=== PATIENT | male | born 1980 | race Caucasian/White ===

== ENCOUNTER 2016-12-04 09:54 | Day surgery (SDC) | payer OTHER ==
[~2016-12-04 09:54] MED LIST: Lactated Ringers 1,000 ML IV SCH; Lidocaine 1%/Sod Bicarbonate in NS 8.4% 1 ML Syringe IV PRN; Sodium Chloride 0.9% 10 ML Syringe FLUSH PRN
--- NOTE | 2016-12-04 11:06 | PCM.PREANE ---
Preanesthetic Assessment - Physical Assessment O2 Sat by Pulse Oximetry: 96 Respiratory Rate: 16 Vital Signs: Last Vital Signs Temp 98.7 C H 12/04/16 10:35 Pulse 79 12/04/16 10:35 Resp 16 12/04/16 10:35 BP 137/79 12/04/16 10:35 Pulse Ox 96 12/04/16 10:35 Height: 1.8 m Weight: 79.379 kg - Allergies Allergies/Adverse Reactions: Allergies Allergy/AdvReac Type Severity Reaction Status Date / Time No Known Allergies Allergy Verified 12/03/16 13:58 PreAnesthesia Questionnaire HEENT History: Reports: Otitis media, Sinusitis, Other (see below) Other HEENT History: dental abcess, jaw pain Cardiovascular History: Reports: None Respiratory History: Reports: Other (see below) Other Respiratory History: SOB on exertion Gastrointestinal History: Reports: Chronic diarrhea, Other (see below) Other Gastrointestinal History: epigastric pain, Hep C exposure Genitourinary History: Reports: None HISTORIC SITE ADMINISTRATOR History: Reports: None Musculoskeletal History: Reports: Other (see below) Other Musculoskeletal History: lumbar strain Neurological History: Reports: Vertigo, Other (see below) Psychiatric History: Reports: None Endocrine/Metabolic History: Reports: None Hematologic History: Reports: None Immunologic History: Reports: None Oncologic (Cancer) History: Reports: None Dermatologic History: Reports: Other (see below) Other Dermatologic History: open wound to face - Past Surgical History Head Surgeries/Procedures: Reports: None - SUBSTANCE USE Smoking Status *Q: Current Every Day Smoker (1-2ppd for 15 years) Recreational Drug Use History: Yes Recreational Drug Type: Reports: Methamphetamine - HOME MEDS Home Medications: Home Meds Chlorhexidine Gluconate [Periogard] 1 dose PO ASDIRECTED 12/03/16 [History] Ibuprofen [Ibuprofen] 800 mg PO TID PRN 12/03/16 [History] Omeprazole [Omeprazole] 40 mg PO DAILY 12/03/16 [History] - CURRENT (IN HOUSE) MEDS Current Meds: Current Medications Lactated Ringer's (Ringers, Lactated) 1,000 mls @ 125 mls/hr IV ASDIRECTED KAYLA Stop: 12/04/16 23:00 Lidocaine/Sodium Bicarbonate (Buffered Lidocaine 1% In Ns 8.4%) 0.25 ml IV ONETIME PRN PRN Reason: Prior to IV Start Stop: 12/04/16 18:00 Sodium Chloride (Saline Flush) 10 ml FLUSH ASDIRECTED PRN PRN Reason: Keep Vein Open Stop: 12/04/16 18:00 Preanesthetic Assessment - ANESTHESIA/TRANSFUSION/FAMILY HX Anesthesia/Transfusion History: No Prior Anesthesia, No Prior Transfusion(s) Family History of Anesthesia Reaction: No Intubation History: Unknown Type of Transfusion Reactions: Reports: Unknown - REVIEW OF SYSTEMS Constitutional: Reports: no symptoms ADMINISTRATIVE SUPPORT ASSOC: Reports: no symptoms Respiratory: Reports: shortness of breath (with exertion "probably due to smoking") Cardiovascular: Reports: no symptoms GI: Reports: no symptoms Other: Reports: None - PHYSICAL ASSESSMENT O2 Sat by Pulse Oximetry: 96 RR: 16 Vital Signs: Last Vital Signs Temp 98.7 C H 12/04/16 10:35 Pulse 79 12/04/16 10:35 Resp 16 12/04/16 10:35 BP 137/79 12/04/16 10:35 Pulse Ox 96 12/04/16 10:35 Height: 1.8 m Weight: 79.379 kg NPO Status Date: 12/03/16 NPO Status Time: 22:00 ASA Class: 2 Mental Status: Alert & Oriented x3 Dentition: Reports: Broken Tooth/Teeth, Missing Tooth/Teeth (multiple missing top teeth, multiple missing. Very poor dentition. ) Thyro-Mental Finger Breadths: 3 Mouth Opening Finger Breadths: 3 ROM/Head Extension: Full Respiratory Status: lungs clear to auscultation bilaterally Cardiovascular Status: regular rate & rhythm, normal S1, S2, no murmur, blood pressure WNL - ALLERGIES Allergies/Adverse Reactions: Allergies Allergy/AdvReac Type Severity Reaction Status Date / Time No Known Allergies Allergy Verified 12/03/16 13:58 - BLOOD Blood Available: No Product(s) Available: None - ANESTHESIA PLAN Preop Beta Eleonora: No Anesthesia Type Planned: MAC - ACKNOWLEDGEMENTS Pt an Appropriate Candidate for the Planned Anesthesia: Yes Alternatives and Risks of Anesthesia Discussed w Pt/Guardian: Yes Pt/Guardian Understands and Agrees with Anesthesia Plan: Yes
[2016-12-04] MEDS ORDERED: Propofol 200 MG/20 ML SDV ONE (11:28)
[2016-12-04] MEDS ORDERED: Midazolam 1 MG/ML 2 ML SDV ONE (11:28)
--- NOTE | 2016-12-04 11:40 | PCM.OPNOTE ---
[id number] junction, body of the stomach, and antral bx Findings: normal Pre Op Diagnosis: Dyspepsia severe Post-Op Diagnosis: normal EGD Anesthesia Technique: MAC, Moderate sedation Primary Surgeon: Ayad Dickerson Pathology: bx of antrum, stomach, and GE junction EBL in mLs: 0 Complications: None Condition: Good Free Text/Narrative:: After adequate IV sedation and analgesia was obtained. The patient was placed on his left side through a bite block. A lubricated upper endoscope was inserted into the esophagus and advanced to the stomach without difficulty. Air was given here, followed by inch, into the duodenum. The second, and first part of the duodenum were endoscopically normal with no mass, lesions or inflammatory changes seen. The body of the stomach, and antral unremarkable as well. In the retroflexed view the fundus and cardiac, regions were normal. There was no hiatal hernia. The scope was withdrawn to the GE junction, which was normal. Because of his history I took random biopsies of the antrum, body of the stomach, and GE junction using cold forceps x2 each. The body of the esophagus was endoscopically normal. Supervisor [employer] photographs were taken for the patient and for the record. Air was removed, as I finished the procedure, which he tolerated well.
--- NOTE | 2016-12-04 11:54 | PCM48HPAN ---
Post Anesthesia Note - EVALUATION WITHIN 48HRS OF ANESTHETIC Vital Signs in Normal Range: Yes Patient Participated in Evaluation: Yes Respiratory Function Stable: Yes Airway Patent: Yes Cardiovascular Function Stable: Yes Hydration Status Stable: Yes Pain Control Satisfactory: Yes Nausea and Vomiting Control Satisfactory: Yes Mental Status Recovered: Yes
[2016-12-04 12:39] VITALS: BP 120/80
== END 2016-12-04 12:30 | disposition home or self-care (01) ==
LOC: JD.SDS 09:54
PROVIDERS: ATTEND Surgery
PROC: 0DB48ZZ Excision of Esophagogastric Junction, Via Natural or Artificial Opening Endoscopic (ICD-10-PCS; principal; 2016-12-04)
PROC: 0DB78ZZ Excision of Stomach, Pylorus, Via Natural or Artificial Opening Endoscopic (ICD-10-PCS; 2016-12-04)
DX: R10.13 Epigastric pain (principal); F17.210 Nicotine dependence, cigarettes, uncomplicated; K04.7 Periapical abscess without sinus; R19.7 Diarrhea, unspecified; R42 Dizziness and giddiness; J32.9 Chronic sinusitis, unspecified
CPT/HCPCS: 43239; 88305; J2250; J7120; J2704

== ENCOUNTER 2020-04-14 22:05 | Emergency (ER) | payer OTHER ==
[2020-04-14 22:37] VITALS: BP 147/109; PULSE 77
--- NOTE | 2020-04-15 01:23 | EDM.PDOC ---
ED HPI GENERAL MEDICAL PROBLEM - General Chief Complaint: Respiratory Problem Stated Complaint: SOB Time Seen by Provider: 04/15/20 00:59 Source of Information: Reports: Patient History Limitations: Reports: No Limitations - History of Present Illness INITIAL COMMENTS - FREE TEXT/NARRATIVE: Mr. Huerta is a very pleasant 39-year-old gentleman with a past medical history significant for untreated allergic rhinitis, who now presents to the ED stating that he developed dyspnea this past , 04/13/2020, but that it got worse yesterday, and nonproductive cough on 04/14/2020. He denies upper respiratory symptoms, such as rhinorrhea, nasal or sinus congestion, or sneezing. He has not had a fever. He did not take any suwh-cgu-uhgaknq or home remedies prior to coming to the ED. He is requesting to be tested for the SARS-CoV-2 virus. Here in the ED, the patient's initial BP is found to be modestly elevated at 147/109, otherwise, he is hemodynamically stable, afebrile, saturating 98% on room air. Other than his respiratory symptoms, the patient states that he has had loose bowel movements, although no watery diarrhea, for the past several weeks. He attributes his loose bowel movements to being on amoxicillin for a dental infection. He is also wearing bilateral Velcro wrist splints due to possible carpal tunnel syndrome, however, he acknowledges that he has not yet had a formal evaluation for it. Otherwise, he denies having a recent fever, chills, sore throat, ear pain, nasal or sinus congestion, chest pain, palpitations, nausea, vomiting, constipation, diarrhea, abdominal pain, urinary symptoms, recent weight gain or weight loss, recent bloody bowel movements or black bowel movements, recent joint aches, headaches, or rashes. The patient's PCP is JOAQUIM Marie. - Related Data Allergies Allergy/AdvReac Type Severity Reaction Status Date / Time No Known Allergies Allergy Verified 04/14/20 22:37 Home Meds: Home Meds Chlorhexidine Gluconate [Periogard] 1 dose PO ASDIRECTED 12/03/16 [History] Ibuprofen 800 mg PO TID PRN 12/03/16 [History] Omeprazole 40 mg PO DAILY 12/03/16 [History] Penogard 0.12 percent PO ASDIRECTED 12/04/16 [History] Past Medical History HEENT History: Reports: Allergic Rhinitis (untreated) Musculoskeletal History: Reports: Other (See Below) - Past Surgical History HEENT Surgical History: Reports: Oral Surgery (dental extractions) GI Surgical History: Reports: EGD (x 1) Social & Family History - Tobacco Use Smoking Status *Q: Current Every Day Smoker Years of Tobacco use: 21 Packs/Tins Daily: 1.5 - Caffeine Use Caffeine Use: Reports: Coffee - Alcohol Use Alcohol Use History: Yes Alcohol Use Frequency: Rarely - Recreational Drug Use Recreational Drug Use: Yes Drug Use in Last 12 Months: No Recreational Drug Type: Reports: Cocaine (last smoked crack around 2002), Heroin (last smoked around 2002), Marijuana/Hashish (last smoked around 2016), Methamphetamine (last snorted, smoked around 2011) - Living Situation & Occupation Living situation: Reports: , with Spouse, with Family (nephew, 's daughter, [id number]) Occupation: Employed (On leave of absence from [employer] ED ROS GENERAL - Review of Systems Review Of Systems: Comprehensive ROS is negative, except as noted in HPI. ED EXAM, GENERAL - Physical Exam Exam: See Below Exam Limited By: No Limitations General Appearance: Alert, WD/WN, No Apparent Distress Eye Exam: Bilateral Eye: EOMI, Normal Inspection Ears: Normal External Exam, Hearing Grossly Normal Nose: Normal Inspection Throat/Mouth: Normal Inspection, Normal Lips, Normal Voice, No Airway Compromise Head: Atraumatic, Normocephalic Neck: Normal Inspection, Full Range of Motion Respiratory/Chest: No Respiratory Distress, Lungs Clear, Normal Breath Sounds, No Accessory Muscle Use. No: Decreased Breath Sounds, Crackles, Rhonchi, Wheezing, Stridor, Prolonged Expiration Cardiovascular: Normal Peripheral Pulses, Regular Rate, Rhythm, No Edema, No Gallop, No JVD, No Murmur, No Rub Peripheral Pulses: 3+: Radial (L), Radial (R) GI/Abdominal: Normal Bowel Sounds, Soft, Non-Tender, No Organomegaly, No Distention, No Abnormal Bruit, No Mass (Male) Exam: Deferred Rectal (Males) Exam: Deferred Back Exam: Normal Inspection, Full Range of Motion, NT Extremities: Normal Inspection, Normal Range of Motion, No Pedal Edema, Normal Capillary Refill Neurological: Alert, Oriented, Normal Cognition, No Motor/Sensory Deficits Psychiatric: Normal Affect Skin Exam: Warm, Dry, Intact, Normal Color, No Rash Course - Vital Signs Last Recorded V/S: Last Vital Signs Temp 36.3 C 04/14/20 22:33 Pulse 77 04/14/20 22:33 Resp 18 04/14/20 22:33 BP 147/109 H 04/14/20 22:33 Pulse Ox 98 04/14/20 22:33 - Orders/Labs/Meds Orders: Active Orders 24 hr Category Date Time Status Chest 2V [CR] Stat Exams 04/15/20 01:16 Taken CORONAVIRUS COVID-19 PCR PHL Stat Lab 04/15/20 01:20 Ordered Labs: Laboratory Tests 04/15/20 04/15/20 04/15/20 Range/Units 01:35 01:35 01:35 WBC 9.73 H (4.23-9.07) K/mm3 RBC 5.30 (4.63-6.08) M/mm3 Hgb 16.1 (13.7-17.5) gm/dl Hct 48.0 (40.1-51.0) % MCV 90.6 D (79.0-92.2) fl MCH 30.4 (25.7-32.2) pg MCHC 33.5 (32.2-35.5) g/dl RDW Std Deviation 44.8 H (35.1-43.9) fL Plt Count 222 (163-337) K/mm3 MPV 9.8 (9.4-12.3) fl Neutrophils % (Manual) 55 (40-60) % Band Neutrophils % 0 (0-10) % Lymphocytes % (Manual) 41 H (20-40) % Atypical Lymphs % 0 % Monocytes % (Manual) 4 (2-10) % Eosinophils % (Manual) 0 L (0.8-7.0) % Basophils % (Manual) 0 L (0.2-1.2) Platelet Estimate Adequate RBC Morph Comment Normal D-Dimer, Quantitative 0.30 (0.19-0.50) mg/L Sodium 140 (136-145) mEq/L Potassium 4.2 (3.5-5.1) mEq/L Chloride 101 (98-107) mEq/L Carbon Dioxide 31 (21-32) mEq/L Anion Gap 12.2 (5-15) BUN 19 H (7-18) mg/dL Creatinine 1.1 (0.7-1.3) mg/dL Est Cr Clr Drug Dosing 96.03 mL/min Estimated GFR (MDRD) > 60 (>60) mL/min BUN/Creatinine Ratio 17.3 (14-18) Glucose 98 (74-106) mg/dL Calcium 8.6 (8.5-10.1) mg/dL Total Bilirubin 0.3 (0.2-1.0) mg/dL AST 14 L (15-37) U/L ALT 28 (16-63) U/L Alkaline Phosphatase 70 (46-116) U/L Total Protein 7.0 (6.4-8.2) g/dl Albumin 3.5 (3.4-5.0) g/dl Globulin 3.5 gm/dL Albumin/Globulin Ratio 1.0 (1-2) - Re-Assessments/Exams Free Text/Narrative Re-Assessment/Exam: 04/15/20 01:18 As above, the patient has had dyspnea since , 04/13/2020, that got worse yesterday, and a nonproductive cough since yesterday, 04/14/2020. No recent fever. His oxygen saturation is 98% on room air, and his lungs are entirely clear to auscultation bilaterally, therefore my suspicion for pneumonia is extremely low, however, I have ordered a work-up that includes blood work and a chest x-ray to evaluate. The patient is also requesting a test for the SARS-CoV-2 virus, therefore I have ordered a send-out test to the [facility]. 04/15/20 02:16 Two-view chest radiograph appears to be grossly normal. The cardiac silhouette is within normal limits. No pulmonary vascular congestion. No pleural effusions. No focal infiltrate. No pneumothorax. Formal read per the Radiologist pending. 04/15/20 02:44 The patient's CBC is remarkable for WBC count slightly elevated at 9.73, but with 0% bandemia, and the remainder of his CBC being unremarkable. His CMP is remarkable for a BUN slightly elevated at 19, but with a Cr normal at 1.1, and the remainder of his CMP being unremarkable. His D-dimer is within normal limits at 0.30. 04/15/20 02:46 Test results discussed with the patient. As above, today's work-up is unremarkable. As the patient suspects, his symptoms are likely due to his smoking. Other than recommending quitting smoking, I do not have any other specific recommendations. The patient will be swabbed for the SARS-CoV-2 virus prior to discharge. I notified the patient that test results typically take a few days, especially over the weekend. Departure - Departure Time of Disposition: 02:47 Disposition: Home, Self-Care 01 Condition: Good Clinical Impression: Dyspnea, Nonproductive cough - Discharge Information *PRESCRIPTION DRUG MONITORING PROGRAM REVIEWED*: Not Applicable *COPY OF PRESCRIPTION DRUG MONITORING REPORT IN PATIENT MIRIAM: Not Applicable Referrals: Angel Flanagan PA-C [Primary Care Provider] - Forms: ED Department Discharge Additional Instructions: You were seen in the emergency room for shortness of breath since and a dry cough since Friday. Work-up in the ER included blood work, chest x-ray, and a swab for the SARS-CoV-2 virus. Your blood work and chest x-ray were unremarkable. You do not have pneumonia. You do not have a blood clot in your lungs. The results of the test for the SARS-CoV-2 virus typically take a few days, especially over the weekend. You will be notified of your results when they become available. Based on your history, physical exam, and ER tests, your shortness of breath and cough are most likely due to your smoking. We strongly recommend that you consider quitting smoking. If you are having difficulty quitting smoking on your own, we recommend that you follow-up with your PCP, JOAQUIM Marie, to discuss the possibility of a prescription for Chantix. If any other problems, please do not hesitate to return to the ER. Sepsis Event Note (ED) - Evaluation Sepsis Screening Result: No Definite Risk - Focused Exam Vital Signs: Vital Signs Temp Pulse Resp BP Pulse Ox 04/14/20 22:33 36.3 C 77 18 147/109 H 98 - My Orders Last 24 Hours: My Active Orders 04/15/20 01:16 Chest 2V [CR] Stat 04/15/20 01:20 CORONAVIRUS COVID-19 PCR PHL Stat - Assessment/Plan Last 24 Hours: My Active Orders 04/15/20 01:16 Chest 2V [CR] Stat 04/15/20 01:20 CORONAVIRUS COVID-19 PCR PHL Stat
--- NOTE | 2020-04-15 10:27 | CR ---
Chest: 2 views of the chest were obtained. Comparison: Prior chest x-ray of 11/12/17. Heart size and mediastinum are normal. Lungs are clear with no acute parenchymal change. Bony structures are unremarkable. Impression: 1. Nothing acute is seen on 2 view chest x-ray. Diagnostic code #1 Study was dictated in MDT
== END 2020-04-15 03:10 | disposition home or self-care (01) ==
LOC: JD.ED 22:05
DX: R06.00 Dyspnea, unspecified (principal); R05 Cough; F17.210 Nicotine dependence, cigarettes, uncomplicated; Z79.899 Other long term (current) drug therapy; Z20.828 Contact with and (suspected) exposure to other viral communicable diseases
CPT/HCPCS: 36415; 71046; 71046-26; 80053; 85007; 85027; 85379; 99282; 99285-25; U0002

== ENCOUNTER 2020-08-05 12:21 | Emergency (ER) | payer OTHER ==
[2020-08-05 12:31] VITALS: BP 138/95; PULSE 83
--- NOTE | 2020-08-05 13:16 | CR ---
Left hand: 3 views of the left hand were obtained. Comparison: No previous study. Findings: Osseous: Slightly angulated fracture is identified within the distal left fifth metacarpal. Angulation is apex posterior. No additional fracture or other bony abnormality is appreciated. Soft tissues: Soft tissue swelling is noted primarily around the fifth digit. Impression: 1. Mildly angulated distal left fifth metacarpal fracture with soft tissue swelling. Diagnostic code #3
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
[2020-08-05] MEDS ORDERED: FLU VACC QS2020-21(6MOS UP)/PF 60 MCG/0.5 ML SYRINGE IM ONE (14:00)
== END 2020-08-05 13:42 | disposition home or self-care (01) ==
LOC: JD.ED 12:21
DX: S92.355A Nondisplaced fracture of fifth metatarsal bone, left foot, initial encounter for closed fracture (principal); F17.210 Nicotine dependence, cigarettes, uncomplicated; Z23 Encounter for immunization; W22.8XXA Striking against or struck by other objects, initial encounter
CPT/HCPCS: 29125; 73130-26-LT; 73130-LT; 90686; 99282; 99283-25; G0008

== ENCOUNTER 2022-01-12 17:28 | Day surgery (SDC) | payer OTHER ==
[2022-01-12] MEDS ORDERED: Sodium Chloride 0.9% 1,000 ML IV STA (17:51)
[2022-01-12] MEDS ORDERED: Sodium Chloride 0.9% 10 ML Syringe FLUSH PRN ×2 (17:51→17:59)
[2022-01-12] MEDS ORDERED: Ondansetron 4 MG/2 ML SDV IVPUSH ONE (17:51)
[2022-01-12] MEDS ORDERED: HYDROmorphone 0.5 MG/0.5 ML Syringe IVPUSH ONE (17:52)
[2022-01-12] MEDS ORDERED: Iopamidol 612 MG/ML 100 ML Bottle IVPUSH ONE (17:59)
[2022-01-12] MEDS ORDERED: Diatrizoate Meglumine/Diatrizoate Sodium 37% 120 ML Bottle PO ONE (17:59)
[2022-01-12] MEDS ORDERED: cefOXitin 2 GM in Premix Bag 1 BAG IV ONE (19:20)
[2022-01-12] MEDS ORDERED: Scopolamine 1.5 MG Transdermal Patch TOP ONE (20:14)
[2022-01-12] MEDS ORDERED: Propofol 200 MG/20 ML SDV ONE (20:25)
[2022-01-12] MEDS ORDERED: Lidocaine 1% 5 ML VIAL ONE (20:26)
[2022-01-12] MEDS ORDERED: Midazolam 1 MG/ML 2 ML SDV ONE (20:26)
[2022-01-12] MEDS ORDERED: diphenhydrAMINE 50 MG/ML SDV ONE (20:26)
[2022-01-12] MEDS ORDERED: Rocuronium 50 MG/5 ML Vial ONE (20:26)
[2022-01-12] MEDS ORDERED: Succinylcholine/Sod PF 100 MG/5 ML SYRINGE IV ONE (20:26)
[2022-01-12] MEDS ORDERED: Dexamethasone 4 MG/ML 5 ML MDV ONE (20:26)
[2022-01-12] MEDS ORDERED: Ondansetron 4 MG/2 ML SDV ONE (20:26)
[2022-01-12] MEDS ORDERED: fentaNYL 250 MCG/5 ML SDV ONE (20:26)
[2022-01-12] MEDS ORDERED: Bupivacaine 0.5%/EPINEPHrine 1:200,000 50 ML MDV ONE (20:34)
[2022-01-12] MEDS ORDERED: Lactated Ringers 1,000 ML ONE (21:09)
[2022-01-12] MEDS ORDERED: Sugammadex Sodium 200 MG/2 ML VIAL ONE (21:20)
[2022-01-12] MEDS ORDERED: fentaNYL 100 MCG/2 ML SDV IVPUSH PRN (21:50)
[2022-01-12] MEDS ORDERED: HYDROmorphone 0.5 MG/0.5 ML Syringe IVPUSH PRN (21:50)
[2022-01-12] MEDS ORDERED: Ondansetron 4 MG/2 ML SDV IVPUSH PRN (21:50)
[2022-01-12] MEDS ORDERED: Lactated Ringers 1,000 ML IV SCH (22:15)
[2022-01-12 22:35] VITALS: BP 128/79; PULSE 80
[2022-01-12] MEDS ORDERED: Acetaminophen/HYDROcodone 325-5 MG Tab PO PRN (23:30)
[2022-01-12] MEDS ORDERED: Acetaminophen 325 MG Tab PO PRN (23:33)
== END 2022-01-13 08:55 | disposition home or self-care (01) ==
LOC: JD.ED 17:28 → JD.SDS 19:49 → JD.MS 23:19 → JD.SDS 01-13 08:55
PROVIDERS: ATTEND Surgery
DX: K35.32 Acute appendicitis with perforation, localized peritonitis, and gangrene, without abscess (principal); K21.9 Gastro-esophageal reflux disease without esophagitis; F17.210 Nicotine dependence, cigarettes, uncomplicated; Z98.890 Other specified postprocedural states
CPT/HCPCS: 36415; 44970; 74177; 80053; 83690; 85025; 96374; 96375; 99285; A9270; J0330; J0694; J1100; J1170; J1200; J2250; J2405; J2704; J3010; J3490; J7030; J7120; Q9963; Q9967; 00840; 99140

== ENCOUNTER 2022-01-18 21:54 | Emergency (ER) | payer OTHER ==
[2022-01-18 22:08] VITALS: BP 144/90; PULSE 99
[2022-01-18] MEDS ORDERED: Sodium Chloride 0.9% 10 ML Syringe FLUSH PRN (22:09)
[2022-01-18] MEDS ORDERED: Ketorolac 30 MG/ML SDV IVPUSH ONE (22:17)
[2022-01-18] MEDS ORDERED: Acetaminophen 325 MG Tab PO ONE (22:18)
[2022-01-19 00:02] LABS: CORONAVIRUS COVID-19 NAA NEGATIVE (NEGATIVE)
== END 2022-01-19 00:25 | disposition home or self-care (01) ==
LOC: JD.ED 21:54
DX: R51.9 Headache, unspecified (principal); R68.83 Chills (without fever); I10 Essential (primary) hypertension; F17.210 Nicotine dependence, cigarettes, uncomplicated; Z79.899 Other long term (current) drug therapy; Z90.49 Acquired absence of other specified parts of digestive tract; Z20.822 Contact with and (suspected) exposure to COVID-19
CPT/HCPCS: 0240U; 36415; 70450; 80053; 85025; 86140; 96374; 99284; A9270; J1885; J3490

== ENCOUNTER 2023-12-18 10:24 | Emergency (ER) | payer OTHER ==
[2023-12-18 11:06] VITALS: PULSE 82
[2023-12-18 12:20] LABS: BASOPHILS PERCENT AUTO 0.4 % (0.0-1.0); EOSINOPHILS PERCENT AUTO 0.6 % (0.0-6.0); HEMATOCRIT 45.5 % (42.0-52.0); HEMOGLOBIN 15.5 gm/dl (14.0-18.0); IMMATURE GRAN ABSOLUTE AUTO 0.01 K/mm3 (0.00-0.05); IMMATURE GRAN PERCENT AUTO 0.1 % (0.0-0.4); LYMPHOCYTES ABSOLUTE AUTO 2.1 K/mm3 (1.0-4.8); LYMPHOCYTES PERCENT AUTO 31.6 % (24.0-44.0); MEAN CORPUSCULAR HEMOGLOBIN 28.8 pg (28.0-32.0); MEAN CORPUSCULAR HGB CONC 34.1 g/dl (32.0-36.0); MEAN CORPUSCULAR VOLUME 84.6 fl (83.0-99.0); MEAN PLATELET VOLUME 9.7 fl (9.4-12.4); MONOCYTES ABSOLUTE AUTO 0.5 K/mm3 (0.0-0.8); MONOCYTES PERCENT AUTO 7.5 % (0.0-8.0); NEUTROPHILS PERCENT AUTO 59.8 % (41.0-71.0); PLATELET COUNT,PLT 292 K/mm3 (150-400); RED BLOOD CELL COUNT 5.38 M/mm3 (4.52-5.90); WHITE BLOOD CELL COUNT,WBC 6.77 K/mm3 (3.9-11.3)
[2023-12-18 12:53] LABS: ALBUMIN 3.7 g/dl (3.4-5.0); ANION GAP 11.4 (5-15); BILIRUBIN TOTAL 0.4 mg/dL (0.2-1.0); C-REACTIVE PROTEIN 0.43 mg/dL (<0.30); CALCIUM 9.2 mg/dL (8.5-10.1); CREATININE 0.9 mg/dL (0.7-1.3); EST CRCL DRUG DOSING (CG) 112.72 mL/min; POTASSIUM,K 4.4 mEq/L (3.5-5.1); PROTEIN TOTAL,TP 7.5 g/dl (6.4-8.2)
[2023-12-18] MEDS: Aspirin 81 MG Tab.Chew PO ONE (15:47)
[2023-12-18] MEDS: Sodium Chloride 0.9% 10 ML Syringe FLUSH PRN (15:54)
[2023-12-18 19:57] VITALS: BP 132/87
== END 2023-12-18 17:15 ==
LOC: JD.ED 10:24
DX: I20.9 Angina pectoris, unspecified (principal); R94.39 Abnormal result of other cardiovascular function study; I10 Essential (primary) hypertension; K21.9 Gastro-esophageal reflux disease without esophagitis; Z87.891 Personal history of nicotine dependence; Z79.899 Other long term (current) drug therapy
CPT/HCPCS: 36415; 71046; 80053; 84484; 85025; 85379; 86140; 93005; 99285; A9270; J3490; 93010; 99284